=== PATIENT | female | born 1980 | race African-American/Black ===

== ENCOUNTER 2017-09-13 08:40 | Emergency (ER) | payer OTHER ==
[2017-09-13 09:01] VITALS: BP 111/74; PULSE 65; TEMP 98.2; BMI 30.9
--- NOTE | 2017-09-13 11:07 | PDOC ---
History of Present Illness - General Chief Complaint: Head/Neck problem Stated Complaint: RIGHT SIDE NUMBNESS Time Seen by Provider: 09/13/17 09:39 History Source: Patient Exam Limitations: No Limitations - History of Present Illness Initial Comments: 09/13/17 11:05 37y F hx of prolactinoma (noncomplaint) presents with Neck pain and R sided hand stifness. The patient states that for the past 2 weeks, she will have intermittent episodes of R hand/leg stiffness, she states she will open/close it and it denisa get better after about 10 minutes. The pt also notes that she has a mild intermittentheadache that is frontal, mild, pressure like that resolves spontaneously about 10 minutes later. She notes that the headache seems to get worse before meals. The pt denies any vision changes, n/v, cp, palpitations, f/ c, abd pain, back pain. Pt states she currently feels well. She called her PMD who referred her to the ED. pt denies any recent trauma/head injury. pt endorses occaional R neck pain, but non currently. no hx of neck/cervical/disk issues. pt denies any etoh abuse, current drug abuse. PMD:Filipe Brandt Past History - Past Medical History Allergies/Adverse Reactions: Allergies Allergy/AdvReac Type Severity Reaction Status Date / Time No Known Drug Allergies Allergy Verified 09/13/17 09:02 Home Medications: Ambulatory Orders Pnv with Ca,No.71/Iron/FA [ Vitamin Tablet] 1 each PO 02/11/13 Ibuprofen [Motrin -] 600 mg PO TID PRN #30 tablet 07/13/13 Anemia: No Asthma: No Cancer: No Cardiac Disorders: No CVA: No COPD: No CHF: No Dementia: No Diabetes: No GI Disorders: No Disorders: No HTN: No Hypercholesterolemia: No Liver Disease: No Seizures: No Thyroid Disease: No - Surgical History Abdominal Surgery: No Appendectomy: No Cardiac Surgery: No Cholecystectomy: No Lung Surgery: No Neurologic Surgery: No Orthopedic Surgery: No - Suicide/Smoking/Psychosocial Hx Smoking Status: Yes Smoking History: Current every day smoker Have you smoked in the past 12 months: Yes Number of Cigarettes Smoked Daily: 20 If you are a former smoker, when did you quit?: quit before Information on smoking cessation initiated: No 'Breaking Loose' booklet given: 09/07/12 Hx Alcohol Use: No Drug/Substance Use Hx: No Substance Use Type: None Hx Substance Use Treatment: No Review of Systems - Review of Systems Able to Perform ROS?: Yes Comments:: 09/13/17 11:28 Constitutional - no reported Fever, Chills, HEENT: no reported vision changes, sore throat Respiratory: no reported cough, sob, hemoptysis Cardiac: no reported chest pain, palpitations, light headedness, leg swelling Abd/GI: no reported abd pain, nausea, vomiting, blood per rectum, melena, diarrhea : no reported dysuria, frequency, discharge Musculskelatal - +r hand stiffness r leg stiffness (intermittent) no reported back pain, joint swelling skin - no reported bruising, erythema, rash neurological: +headache no reported headache, numbness, focal weakness, tingling , ataxia, hematologic: no reported anemia, easy bruising, easy bleeding *Physical Exam - Vital Signs Last Vital Signs Temp Pulse Resp BP Pulse Ox 98.2 F 65 18 111/74 100 09/13/17 08:58 09/13/17 08:58 09/13/17 08:58 09/13/17 08:58 09/13/17 08:58 - Physical Exam Comments: 09/13/17 11:30 GENERAL: The patient is awake, alert, and fully oriented, Nontoxic - in no acute distress. HEAD: Normocephalic, atraumatic. EYES: extraocular movements intact, sclera anicteric, conjunctiva clear. ENT: Normal voice, Moist mucous membranes. NECK: Normal range of motion, supple LUNGS: Breath sounds equal, clear to auscultation bilaterally. No wheezes, no rhonchi, no rales. HEART: Regular rate and rhythm, normal S1 and S2 without murmur, rub or gallop. ABDOMEN: Soft, nontender, normoactive bowel sounds. No guarding, no rebound. . No CVA tenderness EXTREMITIES: Normal range of motion, no edema. No clubbing or cyanosis. No cords, erythema, or tenderness. NEUROLOGICAL: No facial assymetry, Normal speech, PSYCH: Normal mood, normal affect. SKIN: Warm, Dry, normal turgor, NEURO: Mental status: The patient is oriented x3. Cranial nerves: Cranial nerves II through XII are intact Motor: The upper extremities are 5 over 5 in all muscle groups. The lower extremities are 5 over 5 in all muscle groups. Negative pronator drift Sensation: Sensation is intact to light touch throughout. romberg negative Cerebellar: Iyhzsw-emnmfv-zaah is normal in both upper extremities. Heel-knee- rendon is normal in both lower extremities. rapid alternating movements are normal. Reflexes: 2+ and symmetric in the upper and lower extremities. Gait: Normal. Heel and toe walking are normal. Tandem gait is normal. Medical Decision Making - Medical Decision Making 09/13/17 11:31 will obtain blood work to r/o anemia, metabolic derangement ct head to r/o mass due to hx of prolatioma nonfocal exam currently will reassess 09/13/17 11:33 pts tates she needs to bead picker her daugther, she will return to complete workup but will sign her out AMA for now *DC/Admit/Observation/Transfer Diagnosis at time of Disposition: Arm stiffness - Discharge Dispostion Disposition: AGAINST MEDICAL ADVICE - Referrals Referrals: Yosef Brandt [Primary Care Provider] - - Patient Instructions - Post Discharge Activity
== END 2017-09-13 11:43 | disposition left against medical advice (07) ==
LOC: JER 08:40
DX: M25.641 Stiffness of right hand, not elsewhere classified (principal); F17.210 Nicotine dependence, cigarettes, uncomplicated
CPT/HCPCS: 99281-25

== ENCOUNTER 2017-09-14 08:52 | Emergency (ER) | payer OTHER ==
[2017-09-14 09:00] VITALS: BP 116/72; PULSE 62; TEMP 98.3; BMI 28.1
--- NOTE | 2017-09-14 12:50 | PDOC ---
History of Present Illness - General Chief Complaint: Weakness Stated Complaint: Revisit Time Seen by Provider: 09/14/17 12:38 Past History - Past Medical History Allergies/Adverse Reactions: Allergies Allergy/AdvReac Type Severity Reaction Status Date / Time No Known Drug Allergies Allergy Verified 09/14/17 09:00 Home Medications: Ambulatory Orders Unobtainable [Unobtainable] 09/14/17 Anemia: No Asthma: No Cancer: No Cardiac Disorders: No CVA: No COPD: No CHF: No Dementia: No Diabetes: No GI Disorders: No Disorders: No HTN: No Hypercholesterolemia: No Liver Disease: No Seizures: No Thyroid Disease: No - Surgical History Abdominal Surgery: No Appendectomy: No Cardiac Surgery: No Cholecystectomy: No Lung Surgery: No Neurologic Surgery: No Orthopedic Surgery: No - Suicide/Smoking/Psychosocial Hx Smoking Status: Yes Smoking History: Current every day smoker Have you smoked in the past 12 months: Yes Number of Cigarettes Smoked Daily: 6 If you are a former smoker, when did you quit?: quit before Information on smoking cessation initiated: No 'Breaking Loose' booklet given: 09/07/12 Hx Alcohol Use: Yes (SOCIAL) Drug/Substance Use Hx: No Substance Use Type: None Hx Substance Use Treatment: No *Physical Exam - Vital Signs Last Vital Signs Temp Pulse Resp BP Pulse Ox 98.3 F 62 20 116/72 100 09/14/17 08:57 09/14/17 08:57 09/14/17 08:57 09/14/17 08:57 09/14/17 08:57 ED Treatment Course - LABORATORY CBC & Chemistry Diagram: 09/14/17 13:50 09/14/17 13:50 Medical Decision Making - Medical Decision Making 09/14/17 15:27 Pt upset that she has not gone for CT scan yet, yelling at staff. Explained that we have the order placed and are waiting for her turn. will call CT 09/14/16 15:29 CT ready for patient. 09/14/17 16:[address] negatived for acute pathology. Lab work with blood in the urine. Leukocytes negative. Will d/c home at this time. *DC/Admit/Observation/Transfer Diagnosis at time of Disposition: Numbness and tingling - Discharge Dispostion Disposition: HOME Condition at time of disposition: Good Admit: No - Referrals Referrals: Yosef Brandt [Primary Care Provider] - Maxx Goncalves MD [Staff Physician] - Yinka Pickett [Staff Physician] - - Patient Instructions Printed Discharge Instructions: DI for Numbness/tingling Additional Instructions: Your CT scan today was negative for stroke, or mass. Your lab work was also normal. Please follow up with your primary care doctor this week. You were also given a referral for a neurologist. Please call and make an appointment. Return to the ED if you have worsening numbness and tingling, headache, changes in the way you walk, or any new or concerning symptoms. - Post Discharge Activity Forms/Work/School Notes: Back to Work
[2017-09-14 14:25] LABS: BASO % 0.5 % (0-2.0); EOS % 0.7 % (0-4.5); HEMATOCRIT 39.4 % (32.4-45.2); HEMOGLOBIN 12.8 GM/dL (10.7-15.3); LYMPH % 29.7 % (8-40); MCHC 32.5 g/dl (32.0-36.0); MEAN PLT VOLUME 8.1 fl (7.5-11.1); MONO % 5.2 % (3.8-10.2); NEUT % 63.9 % (42.8-82.8); PLATELET COUNT 306 K/MM3 (134-434); RBC 4.92 M/mm3 (3.60-5.2); RDW 16.5 % (11.6-15.6); WHITE BLOOD COUNT 9.2 K/mm3 (4.0-10.0)
[2017-09-14 14:35] LABS: ALBUMIN 3.7 g/dl (3.4-5.0); ANION GAP 6 (8-16); BLOOD UREA NITROGEN 5 mg/dL (7-18); CALCIUM 8.9 mg/dL (8.5-10.1); CHLORIDE 107 mmol/L (98-107); CO2 28 mmol/L (21-32); GLUCOSE,RANDOM 84 mg/dL (74-106); MAGNESIUM 1.9 mg/dL (1.8-2.4); POTASSIUM 4.1 mmol/L (3.5-5.1); SODIUM 141 mmol/L (136-145)
[2017-09-14 14:39] LABS: ALK PHOS 63 U/L (45-117); BILIRUBIN,TOTAL 0.4 mg/dL (0.2-1.0); CREATININE 0.7 mg/dL (0.55-1.02); SGOT/AST 9 U/L (15-37); SGPT/ALT 13 U/L (12-78); TOT PROT 7.7 g/dl (6.4-8.2)
[2017-09-14 14:44] LABS: HCG,QUALITATIVE URINE NEGATIVE
[2017-09-14 14:51] LABS: URINE APPEARANCE CLOUDY; URINE BILIRUBIN NEGATIVE (NEGATIVE); URINE BLOOD 3+ (NEGATIVE); URINE COLOR RED; URINE GLUCOSE (UA) NEGATIVE (NEGATIVE); URINE KETONE NEGATIVE (NEGATIVE); URINE NITRITE NEGATIVE (NEGATIVE); URINE PROTEIN 2+ (NEGATIVE); URINE UROBILINOGEN NEGATIVE mg/dL (0.2-1.0)
[2017-09-14 14:57] LABS: EPI CELLS MODERATE /HPF (FEW); URINE MUCUS FEW
== END 2017-09-14 16:12 | disposition home or self-care (01) ==
LOC: JER 08:52
DX: R20.2 Paresthesia of skin (principal); F17.210 Nicotine dependence, cigarettes, uncomplicated
CPT/HCPCS: 36415; 70450-TC; 80053; 81003; 81015; 83735; 84146; 84703; 85025; 99282-25

== ENCOUNTER 2018-06-28 19:19 | Emergency (ER) | payer OTHER ==
[2018-06-28 19:34] VITALS: BP 126/60; PULSE 80; TEMP 98.7; BMI 26.6
[2018-06-28] MEDS ORDERED: ACETAMINOPHEN 325 MG TABLET (FP) PO ONE (20:31)
[2018-06-28] MEDS ORDERED: CYCLOBENZAPRINE HCL 5 MG TABLET PO ONE (20:32)
[2018-06-28] MEDS ORDERED: ACETAMINOPHEN 325 MG TABLET (FP) ONE (23:02)
[2018-06-28] MEDS ORDERED: CYCLOBENZAPRINE HCL 10 MG TABLET (FP) ONE (23:03)
[2018-06-28] MEDS ORDERED: DIPHTH,PERTUSS(ACELL),TET 0.5 ML DISP.SYRIN IM ONE (23:16)
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
== END 2018-06-28 23:30 | disposition home or self-care (01) ==
LOC: JER 19:19
PROC: 3E0234Z Introduction of Serum, Toxoid and Vaccine into Muscle, Percutaneous Approach (ICD-10-PCS; principal; 2018-06-28)
DX: S10.91XA Abrasion of unspecified part of neck, initial encounter (principal); Y04.2XXA Assault by strike against or bumped into by another person, initial encounter; Y93.89 Activity, other specified; Y92.89 Other specified places as the place of occurrence of the external cause; Y07.9 Unspecified perpetrator of maltreatment and neglect; Z86.011 Personal history of benign neoplasm of the brain
CPT/HCPCS: 90715; 99281-25

== ENCOUNTER 2021-10-28 04:20 | Day surgery (SDC) | payer OTHER ==
[2021-10-23 13:40] VITALS: BMI 29.9
[2021-10-28] MEDS ORDERED: PROPOFOL 20 ML ONE (14:30)
[2021-10-28] MEDS ORDERED: MIDAZOLAM HCL 2 MG/2 ML SINGLE DOSE VIAL ONE (14:30)
[2021-10-28] MEDS ORDERED: ceFAZolin SODIUM 1 GM VIAL ONE (14:45)
[2021-10-28] MEDS ORDERED: ceFAZolin 2 GRAM PREMIX BAG IVPB ONE (14:47)
[2021-10-28] MEDS ORDERED: DEXAMETHASONE SOD PHOSPHATE 4 MG/1 ML VIAL ONE (14:48)
[2021-10-28] MEDS ORDERED: KETOROLAC TROMETHAMINE 30 MG/1 ML VIAL ONE (15:27)
[2021-10-28] MEDS ORDERED: oxyCODONE HCL 5 MG TABLET PO PRN (15:43)
[2021-10-28] MEDS ORDERED: ONDANSETRON 4 MG/2 ML VIAL IVPUSH PRN (15:43)
[2021-10-28] MEDS ORDERED: LACTATED RINGERS SOLUTION 1,000 ML IV SCH (15:45)
[2021-10-28] MEDS ORDERED: ONDANSETRON 4 MG/2 ML VIAL ONE (15:49)
[2021-10-28] MEDS ORDERED: ONDANSETRON 4 MG/2 ML VIAL IVPUSH ONE (15:51)
[2021-10-28 17:18] VITALS: TEMP 98.4
[2021-10-28 17:32] VITALS: BP 128/82; PULSE 67
== END 2021-10-28 17:26 | disposition home or self-care (01) ==
LOC: MERGE 04:20 → JASU-SURG 04:20
PROVIDERS: ATTEND Obstetrics & Gynecology
PROC: 0UDB8ZX Extraction of Endometrium, Via Natural or Artificial Opening Endoscopic, Diagnostic (ICD-10-PCS; principal; 2021-10-28 14:00)
DX: N85.00 Endometrial hyperplasia, unspecified (principal)
CPT/HCPCS: 81025; 88305-TC; 94760

== ENCOUNTER 2021-12-02 04:20 | Inpatient (IN) | payer OTHER ==
[2021-11-30 17:20] VITALS: BMI 29.9
[2021-12-02] MEDS ORDERED: BUPIVACAINE HCL/PF 0.5% (5MG/ML) 10 ML VIAL ONE (12:29)
[2021-12-02] MEDS ORDERED: BUPIVACAINE LIPOSOME/PF (EXPAREL) 266 MG/20 ML VIAL ONE (12:29)
[2021-12-02] MEDS ORDERED: MIDAZOLAM HCL 2 MG/2 ML SINGLE DOSE VIAL ONE ×2 (12:30)
[2021-12-02] MEDS ORDERED: PROPOFOL 20 ML ONE ×5 (13:45→16:55)
[2021-12-02] MEDS ORDERED: HYDROmorphone HCl 2 MG/ML VIAL ONE (13:47)
[2021-12-02] MEDS ORDERED: ceFAZolin 2 GRAM PREMIX BAG IVPB ONE (13:50)
[2021-12-02] MEDS ORDERED: NEOSTIGMINE METHYLSULFATE 0.5 MG/ML - 10 ML MDV ONE (16:04)
[2021-12-02] MEDS ORDERED: METOPROLOL TARTRATE 5 MG/5 ML VIAL ONE (16:25)
[2021-12-02] MEDS ORDERED: KETOROLAC TROMETHAMINE 30 MG/1 ML VIAL ONE (17:00)
[2021-12-02] MEDS ORDERED: ONDANSETRON 4 MG/2 ML VIAL IVPUSH PRN (17:12)
[2021-12-02] MEDS: HYDROmorphone *PCA* 10MG/50ML DISP.SYRIN PCA SCH (17:25)
[2021-12-02] MEDS ORDERED: HYDROmorphone *PCA* 10MG/50ML DISP.SYRIN ONE (17:29)
[2021-12-02] MEDS: LACTATED RINGERS SOLUTION 1,000 ML IV SCH ×2 (19:15→19:57)
[2021-12-02] MEDS ORDERED: metroNIDAZOLE 500 MG TABLET PO SCH (22:00)
[2021-12-02] MEDS: DOCUSATE SODIUM 100 MG CAPSULE (FP) PO SCH (22:23)
[2021-12-02] MEDS: DOXYCYCLINE INJECTION 100 MG in DEXTROSE 5%-WATER 100 ML IVPB SCH (22:24)
[2021-12-03] MEDS: LACTATED RINGERS SOLUTION 1,000 ML IV SCH ×2 (04:25→19:39)
[2021-12-03 07:33] LABS: BASO % 0.1 % (0-2.0); HEMATOCRIT 22.1 % (32.4-45.2); HEMOGLOBIN 7.1 GM/dL (10.7-15.3); MCH 22.7 pg (25.7-33.7); MCHC 32.2 g/dl (32.0-36.0); MEAN CELL VOLUME 70.5 fl (80-96); MEAN PLT VOLUME 8.5 fl (7.5-11.1); MONO % 9.4 % (3.8-10.2); NEUT % 75.5 % (42.8-82.8); PLATELET COUNT 230 10^3/uL (134-434); RBC 3.13 M/mm3 (3.60-5.2); RDW 17.9 % (11.6-15.6); WHITE BLOOD COUNT 9.6 K/mm3 (4.0-10.0)
[2021-12-03 07:37] LABS: ALBUMIN 2.7 g/dl (3.4-5.0); BLOOD UREA NITROGEN 10.4 mg/dL (7-18)
[2021-12-03 07:40] LABS: BILIRUBIN,TOTAL 0.5 mg/dL (0.2-1); CREATININE 0.6 mg/dL (0.55-1.3)
[2021-12-03 07:42] LABS: TOT PROT 5.6 g/dl (6.4-8.2)
[2021-12-03] MEDS ORDERED: ONDANSETRON 4 MG/2 ML VIAL ONE (09:48)
[2021-12-03] MEDS: DOXYCYCLINE INJECTION 100 MG in DEXTROSE 5%-WATER 100 ML IVPB SCH ×2 (10:10→21:11)
[2021-12-03] MEDS: oxyCODONE HCL 5 MG TABLET PO PRN ×3 (11:11→20:50)
[2021-12-03] MEDS: DOCUSATE SODIUM 100 MG CAPSULE (FP) PO SCH ×2 (11:11→22:29)
[2021-12-03] MEDS: SIMETHICONE 80 MG TAB.CHEW (FP) PO SCH ×3 (13:06→20:44)
[2021-12-03] MEDS: IBUPROFEN 600 MG TABLET (FP) PO PRN (13:18)
[2021-12-03] MEDS: HYDROmorphone *PCA* 10MG/50ML DISP.SYRIN PCA SCH (19:38)
[2021-12-04] MEDS: SIMETHICONE 80 MG TAB.CHEW (FP) PO SCH ×7 (00:43→23:03)
[2021-12-04] MEDS: oxyCODONE HCL 5 MG TABLET PO PRN (04:35)
[2021-12-04] MEDS: IBUPROFEN 600 MG TABLET (FP) PO PRN ×3 (07:18→21:00)
[2021-12-04] MEDS: DOCUSATE SODIUM 100 MG CAPSULE (FP) PO SCH ×2 (09:08→21:00)
[2021-12-04] MEDS: DOXYCYCLINE INJECTION 100 MG in DEXTROSE 5%-WATER 100 ML IVPB SCH ×2 (10:23→23:03)
[2021-12-04] MEDS: ACETAMINOPHEN 325 MG TABLET (FP) PO PRN (18:21)
[2021-12-05] MEDS: oxyCODONE HCL 5 MG TABLET PO PRN ×3 (00:31→22:52)
[2021-12-05] MEDS: SIMETHICONE 80 MG TAB.CHEW (FP) PO SCH ×6 (05:52→23:41)
[2021-12-05] MEDS: DOCUSATE SODIUM 100 MG CAPSULE (FP) PO SCH ×2 (09:45→21:13)
[2021-12-05] MEDS: DOXYCYCLINE INJECTION 100 MG in DEXTROSE 5%-WATER 100 ML IVPB SCH ×2 (09:45→21:13)
[2021-12-05] MEDS: ACETAMINOPHEN 325 MG TABLET (FP) PO PRN (17:22)
[2021-12-06] MEDS: SIMETHICONE 80 MG TAB.CHEW (FP) PO SCH ×2 (04:04→08:41)
[2021-12-06] MEDS: oxyCODONE HCL 5 MG TABLET PO PRN (08:41)
[2021-12-06] MEDS: DOCUSATE SODIUM 100 MG CAPSULE (FP) PO SCH (09:11)
[2021-12-06 09:30] VITALS: BP 112/70; PULSE 87; TEMP 98.4
[2021-12-06] MEDS ORDERED: DOXYCYCLINE INJECTION 100 MG in DEXTROSE 5%-WATER 100 ML IVPB ONE (09:36)
== END 2021-12-06 10:10 | disposition home or self-care (01) | DRG 519 ==
LOC: J2C 04:20 → J3W 19:15
PROVIDERS: ADMIT Obstetrics & Gynecology; ATTEND Obstetrics & Gynecology
PROC: 0UB90ZZ Excision of Uterus, Open Approach (ICD-10-PCS; principal; 2021-12-02 13:00)
DX: D25.9 Leiomyoma of uterus, unspecified (principal); N92.0 Excessive and frequent menstruation with regular cycle; D64.9 Anemia, unspecified; N97.2 Female infertility of uterine origin
CPT/HCPCS: 36415; 80053; 81025; 85025; 86850; 86900; 86901; 86922; 88305-TC; 94760

== ENCOUNTER 2022-03-09 23:23 | Emergency (ER) | payer OTHER ==
[2022-03-09 23:28] VITALS: BP 120/75; PULSE 90; TEMP 99.6; BMI 27.4
[2022-03-10] MEDS ORDERED: ACETAMINOPHEN 325 MG TABLET (FP) PO ONE (01:21)
[2022-03-10] MEDS ORDERED: KETOROLAC TROMETHAMINE 30 MG/1 ML VIAL IM ONE (01:21)
[2022-03-10] MEDS ORDERED: ACETAMINOPHEN 325 MG TABLET (FP) ONE (01:26)
[2022-03-10] MEDS ORDERED: KETOROLAC TROMETHAMINE 30 MG/1 ML VIAL ONE (01:27)
[2022-03-10 01:46] LABS: PH,URINE 5.5 (5.0-8.0); URINE APPEARANCE CLEAR; URINE BILIRUBIN NEGATIVE (NEGATIVE); URINE COLOR YELLOW; URINE GLUCOSE (UA) NEGATIVE (NEGATIVE); URINE KETONE 2+ (NEGATIVE); URINE LEUK ESTERASE NEGATIVE (NEGATIVE); URINE NITRITE NEGATIVE (NEGATIVE); URINE PROTEIN TRACE (NEGATIVE); URINE UROBILINOGEN 0.2 mg/dL (0.2-1.0)
== END 2022-03-10 03:00 | disposition home or self-care (01) ==
LOC: JER 23:23 → JERFT 23:23
PROC: 3E023GC Introduction of Other Therapeutic Substance into Muscle, Percutaneous Approach (ICD-10-PCS; principal; 2022-03-09)
DX: J06.9 Acute upper respiratory infection, unspecified (principal); R05.9 Cough, unspecified
CPT/HCPCS: 0241U-QW; 81003; 87086; 99284-25